=== PATIENT | female | born 1970 | race Caucasian/White ===

== ENCOUNTER 2016-09-02 05:52 | Emergency (ER) | payer MEDICAID ==
[~2016-09-02] VITALS: Ht 165.1 cm; Wt 46.0 kg
[~2016-09-02 05:52] MED LIST: ATEN-100 PO; KCL20 PO; LORTA10 PO; MACR100C PO; SERT100 PO; SOMA350T PO; VALI10TA PO
[2016-09-02 05:54] VITALS: BP 151/81; PULSE 65; RESP 16; O2SAT 100
[2016-09-02 06:04] VITALS: TEMP 97.3
[2016-09-02] MEDS ORDERED: AMBI5TAB PO (06:07)
[2016-09-02] MEDS ORDERED: SERT-129 PO (06:07)
[2016-09-02] MEDS ORDERED: DIAZ10 PO (06:07)
[2016-09-02] MEDS ORDERED: GRIS1TAB PO (06:14)
[2016-09-02] MEDS ORDERED: TRIA0.022 TOPICAL (06:14)
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
== END 2016-09-02 06:46 | disposition home or self-care (01) ==
LOC: NETRI 05:52
DX: B35.0 Tinea barbae and tinea capitis (principal)
CPT/HCPCS: 99283